=== PATIENT | female | born 1965 | race Caucasian/White ===

== ENCOUNTER 2021-08-06 08:09 | Inpatient (IN) ==
--- NOTE | 2021-07-03 15:01 | PAT Medication Instructions ---
Medication Instructions Date of Service July 03, 2021 Home Medications B6 1.7 mg-folic 400 mcg-B12 2.4 dpk-jvssgd-cacvdoflkrjj oral capsule (Neuriva Plus Brain Performance) 1 cap PO QAM Lactobacillus 40-Bifidobact 3-S.thermophilus 100 billion cell capsule (P robiotic) 1 cap PO DAILY bupropion HCl 150 mg tablet,12 hr sustained-release 150 mg PO QAM calcium carbonate 600 mg-vitamin D3 5 mcg (200 unit) capsule (Calcium 600 + D(3)) 1 cap PO QAM clonazepam 1 mg tablet 1 mg PO TID PRN duloxetine 60 mg capsule,delayed release 60 mg PO QAM gabapentin 600 mg tablet 600 mg PO HS methocarbamol 750 mg tablet 750 - 1,500 mg PO TID PRN naproxen 500 mg tablet 500 mg PO BID PRN topiramate 50 mg tablet 50 mg PO UD ASK your surgeon for instructions naproxen 500 mg tablet 500 mg PO BID PRN STOP taking 2 weeks before surgery B6 1.7 mg-folic 400 mcg-B12 2.4 vuw-pemnnm-hizsxyopwzka oral capsule (Neuriva Plus Brain Performance) 1 cap PO QAM DO NOT take the morning of surgery Lactobacillus 40-Bifidobact 3-S.thermophilus 100 billion cell capsule (Probiotic) 1 cap PO DAILY calcium carbonate 600 mg-vitamin D3 5 mcg (200 unit) capsule (Calcium 600 + D(3)) 1 cap PO QAM methocarbamol 750 mg tablet 750 - 1,500 mg PO TID PRN Take morning of surgery With a small sip of water, OTHERWISE NOTHING TO EAT OR DRINK AFTER MIDNIGHT: bupropion HCl 150 mg tablet,12 hr sustained-release 150 mg PO QAM clonazepam 1 mg tablet 1 mg PO TID PRN (if needed) duloxetine 60 mg capsule,delayed release 60 mg PO QAM topiramate 50 mg tablet 50 mg PO UD Take evening before surgery gabapentin 600 mg tablet 600 mg PO HS clonazepam 1 mg tablet 1 mg PO TID PRN (if needed) methocarbamol 750 mg tablet 750 - 1,500 mg PO TID PRN (if needed) topiramate 50 mg tablet 50 mg PO UD Other Notes If you have any questions please call us at [phone] or [phone] or [phone] or [phone]
--- NOTE | 2021-07-07 11:17 | Anesthesiology Consultation ---
Date of Service July 07, 2021 Assessment & Plan (1) Encounter for pre-operative examination: - will attempt to obtain most recent cardiology office note and echocardiogram, will then reviewed with anesthesiologist if patient needs cardiology pre-op evaluation. - surgeon ordered medical clearance. - COVID screening: Per assessment on 07/07/2021: Travel screen negative, no known COVID-19 positive contacts or current COVID-19 related symptoms in past 2 weeks. Patient vaccinated. Surgeon arranging preop COVID testing, scheduled 07/17/2021. Awaiting results. Chart Review Chart Review: Pending: Refer to Additional Notes / Consult section and Patient seen in Pre Admission Testing Teaching & Discussion Pre-Anesthesia Teaching/Discussion Notes: Instructed NPO after midnight before surgery, except medications with 15 cc of water. Medication instructions provided according to the PAT guidelines. History Surgery Operation Date: 07/21/21 10:05 Proposed Procedures p L2-L3 Decompression, L2-L5 Fusion, L3-L5 Hardware Removal Spinal Cord Monitoring - Sesar Bartlett, Height/Weight Height: 5 ft 2 in Weight: 98.2 kg Allergies Allergy/AdvReac Type Severity Reaction Status Date / Time Penicillins Allergy Mild Rash Verified 07/03/21 12:31 acetaminophen [From [place]] AdvReac Mild SICK TO Verified 07/03/21 12:31 STOMACH hydrocodone [From [place]] AdvReac Mild SICK TO Verified 07/03/21 12:31 STOMACH morphine AdvReac Mild ITCHING Verified 07/03/21 12:31 ALL OVER Medications Home Medications Medication Instructions Recorded Confirmed Last Taken B6 1.7 mg-folic 400 mcg-B12 2.4 1 cap PO QAM 07/03/21 07/03/21 Unknown xzy-gpttby-facasopwzyhu oral capsule (Neuriva Plus Brain Performance) Lactobacillus 40-Bifidobact 1 cap PO DAILY 07/03/21 07/03/21 Unknown 3-S.thermophilus 100 billion cell capsule (Probiotic) bupropion HCl 150 mg tablet,12 hr 150 mg PO QAM 07/03/21 07/03/21 Unknown sustained-release calcium carbonate 600 mg-vitamin 1 cap PO QAM 07/03/21 07/03/21 Unknown D3 5 mcg (200 unit) capsule (Calcium 600 + D(3)) clonazepam 1 mg tablet 1 mg PO TID PRN 07/03/21 07/03/21 Unknown duloxetine 60 mg capsule,delayed 60 mg PO QAM 07/03/21 07/03/21 Unknown release gabapentin 600 mg tablet 600 mg PO HS 07/03/21 07/03/21 Unknown methocarbamol 750 mg tablet 750 - 1,500 mg PO TID PRN 07/03/21 07/03/21 Unknown naproxen 500 mg tablet 500 mg PO BID PRN 07/03/21 07/03/21 Unknown topiramate 50 mg tablet 50 mg PO UD 07/03/21 07/03/21 Unknown Past Medical History Medical History (Updated 07/07/21 @ 11:39 by Rona Barber PA-C) ADD (attention deficit disorder) Anxiety and depression Arthritis Cardiomyopathy used to follow-up with Dr. Suazo 3-4 yrs ago Degenerative disc disease Epileptic seizures LAST ONE 8 MONTHS AGO>FOLLOWED BY DR. SIERRA Hx of migraines Neuropathy Sleep apnea CPAP-compliant Patient denies h/o stroke, heart attack, DM, HTN, blood clots or blood transfusions. Exercise / Class Metabolic Activity II 4-5 Yardwork/Stairs/Walk up hill (denies CP or SOB with 1 FOS) Past Family History Family History Other No family history of adverse response to anesthesia Past Surgical History Surgical History History of arthroscopy RT KNEE X 4 History of cataract surgery RT/LEFT History of colonoscopy History of lumbar surgery FUSION IN PAST *4 TOTAL BACK SURGERIES History of partial hysterectomy History of repair of rotator cuff LEFT History of tooth extraction Hx of decompression of ulnar nerve LEFT Past Anesthesia History No Family Hx of Anesthesia Complications and Other (post-op hypotension; denies needing transfusion) History of PONV No Hx of PONV and No Hx of Motion Sickness Social History Smoking Status: Current every day smoker tobacco type: cigarettes and e-cigarettes Smoking cigarettes per day: CURRENTLY VAPING>QUIT CIG. 3 YEARS AGO-advised Do You Dip or Chew Tobacco: No Hx Alcohol Use: No substance use type: does not use Review of Systems Patient denies chest pain, shortness of breath, dyspnea on exertion, reflux, fever, chills, cough, wheezing, or palpitations. Physical Exam Vital Signs Vitals BP 122/83 P 73 TEMP 99.2 SP02 98% on RA RESP 17 Physical Full cervical extension range of motion without pain TMD 3.5 finger breaths Mallampati Score 3 Dentition: intact, two caps upper front teeth; denies chipped or loose teeth, implants or bridges Lungs: normal respiratory effort. Clear throughout to auscultation, no adven titious breath sounds Cardiac: regular rate and rhythm, no murmurs noted Carotid arteries: negative bruit bilat Lab Results Anesthesia Preop Results Results Anesthesia Widget: WBC 3.96 K/uL (4.8-10.8) L 07/07/21 Hgb 15.3 g/dL (12.0-16.0) 07/07/21 Hct 45.3 % (37-47) 07/07/21 Plt 134 K/uL (130-400) 07/07/21 Na 141 mmol/L (136-145) 07/07/21 K 4.3 mmol/L (3.5-5.1) 07/07/21 Cl 109 mmol/L (98-107) H 07/07/21 CO2 27 mmol/L (21-32) 07/07/21 BUN 15 mg/dl (6-23) 07/07/21 Creat 1.18 mg/dl (0.6-1.2) 07/07/21 Glucose Level 99 mg/dl (70-99(Fasting)) 07/07/21 PT 10.9 Seconds (9.0-12.0) 07/07/21 PTT 31.8 Seconds (21.0-31.0) H 07/07/21 INR 1.0 (0.9-1.1) 07/07/21 Urine Color Yellow 07/07/21 Urine Appearance Clear (Clear) 07/07/21 Urine pH 6.0 (4.5-7.5) 07/07/21 Urine Specific [place] 1.014 (1.000-1.030) 07/07/21 Urine Protein Negative (Negative) 07/07/21 Urine Glucose (UA) Negative (Negative) 07/07/21 Urine Ketones Negative (Negative) 07/07/21 Urine Blood Negative (Negative) 07/07/21 Urine Nitrite Negative (Negative) 07/07/21 Urine Bilirubin Negative (Negative) 07/07/21 Urine Urobilinogen Negative (Negative) 07/07/21 Urine Leukocyte Esterase 2+ (Negative) H 07/07/21 Urine WBC (Auto) 10-30 /hpf (0-5) H 07/07/21 Urine RBC (Auto) 5-10 /hpf (0-4) H 07/07/21 Urine Hyaline Casts (Auto) 1-5 /lpf (0-5) 07/07/21 Urine Epithelial Cells (Auto) >30 /lpf (0-5) H 07/07/21 Urine Bacteria (Auto) 2+ (Negative) H 07/07/21 Blood Type O Negative 07/07/21 Antibody Screen NEGATIVE 07/07/21 Testing Laboratory Results Tere at surgeon's office made aware of abnormal UA and patient reported h/o post-op hypotension. Electrocardiogram Date: 07/07/21 NSR, rate 69 bpm Chest X-Ray Date: 07/07/21 The cardiomediastinal and hilar silhouettes are within normal limits. No pneumothorax, pleural effusion, airspace consolidation or overt pulmonary edema. Spondylitic spurring of the spine. IMPRESSION: No acute process.
[~2021-08-06 08:09] MED LIST: ACETAMINOPHEN 500 MG TAB PO SCH; CLINDAMYCIN/D5W 600 MG/54 ML BAG IV SCH; CeleBREX 200 MG CAP PO SCH; GABAPENTIN 600 MG DOSE PO SCH; LR 15ML/HR IV SCH
[2021-08-06] MEDS ORDERED: MIDAZOLAM HCL 1 MG/ML 2ML VIAL ONE (09:47)
[2021-08-06] MEDS ORDERED: fentaNYL citrate 100 MCG/2 ML VIAL ONE ×2 (09:47→12:17)
[2021-08-06] MEDS ORDERED: LIDOCAINE 2% 2 ML VIAL/AMP(20MG/ML) INFIL ONE (09:47)
[2021-08-06] MEDS ORDERED: ONDANSETRON INJ 2 MG/ML 2 ML VIAL ONE (09:47)
[2021-08-06] MEDS ORDERED: PROPOFOL IV EMULSION 10 MG/ML 20 ML VIAL IV ONE (09:47)
[2021-08-06] MEDS ORDERED: DEXAMETHASONE SOD INJ 4 MG/ML VIAL ONE (09:47)
[2021-08-06] MEDS ORDERED: ROCURONIUM BROMIDE 10 MG/ML 5 ML VIAL IV ONE (09:47)
--- NOTE | 2021-08-06 10:00 | History & Physical Bridge Note ---
Date of Service August 06, 2021 History & Physical Bridge Note I have examined the patient, reviewed the History & Physical and in the interval since the performance of the History & Physical I have noted the following changes of clinical significance: no changes noted
--- NOTE | 2021-08-06 10:01 | History & Physical Report ---
Date of Service August 06, 2021 Assessment & Plan (1) Neurogenic claudication due to lumbar spinal stenosis: Plan: L2-L3 decompression, L2-L5 fusion, L3-L5 hardware removal, possible L1-L2 History of Present Illness Chief Complaint: Back and bilateral leg pain Primary Care Provider: Kesha Rodríguez MD This is a 56-year-old female who presents with chronic persistent back and bilateral leg pain after failing course of nonoperative care is here for surgical invention. Allergies Allergy/AdvReac Type Severity Reaction Status Date / Time Penicillins Allergy Mild Rash Verified 08/06/21 08:37 acetaminophen [From [place]] AdvReac Mild SICK TO Verified 08/06/21 08:37 STOMACH hydrocodone [From [place]] AdvReac Mild SICK TO Verified 08/06/21 08:37 STOMACH morphine AdvReac Mild ITCHING Verified 08/06/21 08:37 ALL OVER Home Medications Medication Instructions Recorded Confirmed Type B6 1.7 mg-folic 400 mcg-B12 2.4 1 cap PO QAM 07/03/21 08/06/21 History qal-bbfhhj-qlugkbgthrkk oral capsule (Neuriva Plus Brain Performance) Lactobacillus 40-Bifidobact 1 cap PO DAILY 07/03/21 08/06/21 History 3-S.thermophilus 100 billion cell capsule (Probiotic) bupropion HCl 150 mg tablet,12 hr 150 mg PO QAM 07/03/21 08/06/21 History sustained-release calcium carbonate 600 mg-vitamin 1 cap PO QAM 07/03/21 08/06/21 History D3 5 mcg (200 unit) capsule (Calcium 600 + D(3)) clonazepam 1 mg tablet 1 mg PO TID PRN 07/03/21 08/06/21 History duloxetine 60 mg capsule,delayed 60 mg PO QAM 07/03/21 08/06/21 History release gabapentin 600 mg tablet 600 mg PO HS 07/03/21 08/06/21 History methocarbamol 750 mg tablet 750 - 1,500 mg PO TID PRN 07/03/21 08/06/21 History naproxen 500 mg tablet 500 mg PO BID PRN 07/03/21 08/06/21 History topiramate 50 mg tablet 50 mg PO UD 07/03/21 08/06/21 History Past Med/Surg History Medical History (Updated 08/06/21 @ 10:01 by Sesar M Tri, DO) ADD (attention deficit disorder) Anxiety and depression Arthritis Cardiomyopathy used to follow-up with Dr. Suazo 3-4 yrs ago Degenerative disc disease Epileptic seizures LAST ONE 8 MONTHS AGO>FOLLOWED BY DR. SIERRA Hx of migraines Neuropathy Sleep apnea CPAP-compliant Surgical History History of arthroscopy RT KNEE X 4 History of cataract surgery RT/LEFT History of colonoscopy History of lumbar surgery FUSION IN PAST *4 TOTAL BACK SURGERIES History of partial hysterectomy History of repair of rotator cuff LEFT History of tooth extraction Hx of decompression of ulnar nerve LEFT Family History Other No family history of adverse response to anesthesia Social History Smoking Status: Current every day smoker Cigarettes Per Day: CURRENTLY VAPING>QUIT CIG. 3 YEARS AGO-advised; Second Hand Exposure: No; Do You Dip or Chew Tobacco: No; Hx Alcohol Use: No Preferred Language: Congolese Granulating Blender Required: No Beliefs That Will Affect Care: None Current Living Situation: Spouse Feels Safe at Home: Yes Safety Concerns: Feels Safe At This Time Assistive Devices: CPAP and Glasses Assistive Devices Comment: READING GLASSES Physical Exam Physical Exam: Patient is alert and oriented Heart regular rhythm Lungs clear Results & Data Results & Data ([facility] [place]) Vital Signs (Past 12 Hours) Vital Signs Temp Pulse Resp BP Pulse Ox 08/06/21 09:14 36.6 C 78 20 144/83 H 98
[2021-08-06] MEDS ORDERED: ceFAZolin 330 MG/ML 1 GM VIAL ONE (10:08)
[2021-08-06] MEDS ORDERED: BUPIVACAINE/EPINEPHRINE 0.25% 1:200,000 30 ML VIAL ONE (10:08)
[2021-08-06] MEDS ORDERED: ONDANSETRON INJ 2 MG/ML 2 ML VIAL IV PRN ×2 (10:15→15:53)
[2021-08-06] MEDS ORDERED: HYDROmorphone INJ 2 MG/ML SYR/VIAL IV PRN (10:15)
[2021-08-06] MEDS ORDERED: PROMETHAZINE HCL 6.25 MG in SODIUM CHLORIDE 0.9% 50 ML IV PRN (10:15)
[2021-08-06] MEDS ORDERED: ePHEDrine sulfate 50 MG/ML AMP IV PRN (10:15)
[2021-08-06] MEDS ORDERED: ATROPINE SULFATE 0.1 MG/ML 10ML SYR IV PRN (10:15)
--- NOTE | 2021-08-06 11:26 | Anesthesiology Consultation ---
Date of Service August 06, 2021 Assessment & Plan Chart Review Chart Review: Acceptable Risk for Surgery and Patient NOT seen in Pre Admission Testing Consults Requested none ASA ASA3 Proposed Anesthesia Anesthesia Type: General Risk / Benefits Reviewed With: PT / POA / Parent / Guardian, Accepts Plan and Informed Consent Obtained History Surgery Operation Date: 08/06/21 10:05 Proposed Procedures p L2-L3 Decompression, L2-L5 Fusion, L3-L5 Hardware Removal, Spinal Cord Monitoring - Sesar Bartlett, Height/Weight Height: 5 ft 2 in Weight: 99.9 kg Allergies Allergy/AdvReac Type Severity Reaction Status Date / Time Penicillins Allergy Mild Rash Verified 08/06/21 08:37 acetaminophen [From [place]] AdvReac Mild SICK TO Verified 08/06/21 08:37 STOMACH hydrocodone [From [place]] AdvReac Mild SICK TO Verified 08/06/21 08:37 STOMACH morphine AdvReac Mild ITCHING Verified 08/06/21 08:37 ALL OVER Medications Home Medications Medication Instructions Recorded Confirmed Last Taken B6 1.7 mg-folic 400 mcg-B12 2.4 1 cap PO QAM 07/03/21 08/06/21 08/05/21 09:00 ucb-ofvgnz-oanygiozwpcu oral capsule (Neuriva Plus Moodswing) Lactobacillus 40-Bifidobact 1 cap PO DAILY 07/03/21 08/06/21 08/05/21 09:00 3-S.thermophilus 100 billion cell capsule (Probiotic) bupropion HCl 150 mg tablet,12 hr 150 mg PO QAM 07/03/21 08/06/21 08/06/21 06:00 sustained-release calcium carbonate 600 mg-vitamin 1 cap PO QAM 07/03/21 08/06/21 08/05/21 08:00 D3 5 mcg (200 unit) capsule (Calcium 600 + D(3)) clonazepam 1 mg tablet 1 mg PO TID PRN 07/03/21 08/06/21 08/06/21 06:00 duloxetine 60 mg capsule,delayed 60 mg PO QAM 07/03/21 08/06/21 08/06/21 06:00 release gabapentin 600 mg tablet 600 mg PO HS 07/03/21 08/06/21 08/05/21 23:00 methocarbamol 750 mg tablet 750 - 1,500 mg PO TID PRN 07/03/21 08/06/21 08/05/21 23:00 naproxen 500 mg tablet 500 mg PO BID PRN 07/03/21 08/06/21 07/29/21 08:00 topiramate 50 mg tablet 50 mg PO UD 07/03/21 08/06/21 08/06/21 06:00 Active Medications Generic Name Dose Route Start Last Admin Trade Name Idris PRN Reason Stop Dose Admin Acetaminophen 1,000 mg 08/06/21 06:00 08/06/21 08:47 Acetaminophen 500 Mg Tab PO 08/06/21 18:00 1,000 mg PREOP AUBREE Administration Celecoxib 200 mg 08/06/21 06:00 08/06/21 08:48 Celebrex 200 Mg Cap PO 08/06/21 18:00 200 mg PREOP AUBREE Administration Gabapentin 600 mg 08/06/21 06:00 08/06/21 08:47 Gabapentin 600 Mg Dose PO 08/06/21 18:00 600 mg PREOP AUBREE Administration Clindamycin Phosphate 600 mg in 54 mls @ 100 mls/hr 08/06/21 06:00 08/06/21 10:21 Cleocin/D5w IV 08/07/21 05:59 100 mls/hr PREOP AUBREE Administration Lactated Ringer's 1,000 mls @ 15 mls/hr 08/06/21 06:00 08/06/21 10:21 Lr IV 08/07/21 05:59 Infused .Q24H AUBREE Infusion NPO Date Last Intake of Fluids: 08/06/21 Time Last Intake of Fluids: 06:15 Last Intake of Fluids Comment: sip with meds Date Last Intake of Solids: 08/05/21 Time Last Intake of Solids: 23:30 Past Medical History Medical History (Updated 08/06/21 @ 10:01 by Sesar Bartlett DO) ADD (attention deficit disorder) Anxiety and depression Arthritis Cardiomyopathy used to follow-up with Dr. Suazo 3-4 yrs ago Degenerative disc disease Epileptic seizures LAST ONE 8 MONTHS AGO>FOLLOWED BY DR. SIERRA Hx of migraines Neuropathy Sleep apnea CPAP-compliant Exercise / Class Metabolic Activity II 4-5 Yardwork/Stairs/Walk up hill Past Family History Family History Other No family history of adverse response to anesthesia Past Surgical History Surgical History History of arthroscopy RT KNEE X 4 History of cataract surgery RT/LEFT History of colonoscopy History of lumbar surgery FUSION IN PAST *4 TOTAL BACK SURGERIES History of partial hysterectomy History of repair of rotator cuff LEFT History of tooth extraction Hx of decompression of ulnar nerve LEFT Past Anesthesia History No Hx of Anesthesia Complications and No Family Hx of Anesthesia Complications History of PONV No Hx of PONV and No Hx of Motion Sickness Social History Smoking Status: Current every day smoker tobacco type: cigarettes and e-cigarettes Smoking cigarettes per day: CURRENTLY VAPING>QUIT CIG. 3 YEARS AGO-advised Do You Dip or Chew Tobacco: No Hx Alcohol Use: No substance use type: does not use Physical Exam Vital Signs Last Vital Signs Temp 36.6 C 08/06/21 09:14 Pulse 78 08/06/21 09:14 Resp 20 08/06/21 09:14 BP 144/83 H 08/06/21 09:14 Pulse Ox 98 08/06/21 09:14 Constitutional + morbidly obese ENMT Mouth: no dentition abnormality Thyromental Distance: > or= 3.5 Finger Breadths Mallampati Class: II Neck normal visual inspection Respiratory normal respiratory effort Auscultation: lungs clear to auscultation bilaterally Cardiovascular Rate/Rhythm: regular rate and regular rhythm Psychiatric Orientation: alert
[2021-08-06] MEDS ORDERED: FLOSEAL HEMOSTATIC MATRIX 10ML TOP ONE (12:01)
[2021-08-06] MEDS ORDERED: SURGICEL ABSORB HEMOSTAT 2IN X 14IN TOP ONE (12:47)
[2021-08-06] MEDS ORDERED: SUGAMMADEX SODIUM 200 MG/2 ML VIAL IV ONE (12:55)
--- NOTE | 2021-08-06 12:56 | Anesthesiology Progress Note ---
Date of Service August 06, 2021 Anesthesia Post Procedure Vital Signs Vital Signs: Temp Pulse Resp BP Pulse Ox 08/06/21 09:14 36.6 C 78 20 144/83 H 98 Transfer of Care Handoff Completed per policy Notes Mental Status: alert / awake / arousable Patient Amnestic to Procedure: Yes Nausea / Vomiting: adequately controlled Pain: adequately controlled Airway Patency, RR, SpO2: stable & adequate BP & HR: stable & adequate Hydration State: stable & adequate Anesthetic Complications: no major complications apparent
--- NOTE | 2021-08-06 13:01 | Operative Report ---
Post Operative Report Pre & Post Diagnosis Operation Date: 08/06/21 10:05 Pre-Op Diagnosis: Neurogenic Claudication due to Lumbar Spinal Stenosis Far lateral disc herniation L1-L2 on the right Morbid obesity Post-Op Diagnosis: Same I identified the patient and participated in the time-out.: Yes Procedure Operation Date: 08/06/21 10:05 Actual Procedures #1 removal of posterior instrumentation L3-L5. #2 exploration of fusion L3-L5. #3 lumbar decompression with bilateral medial facetectomies and foraminotomies L1-L2 L2-L3. #4 posterior spinal fusion L1-L3. #5 placement posterior instrumentation L1-L5. #6 Surgeon Sesar Bartlett, DO Basic Acoustic Analyst Marielena Person Estimated Blood Loss 1,200 Findings See Below Patient is 5 foot 2 inches tall weighing over 99 kg with a BMI in excess of 40. This combined with an EBL of greater than 1000 cc created significant technical difficulty getting at least 50% increased operative time. Specimens None Indications This is a 56-year-old female presents with above-mentioned diagnosis after failed course of nonoperative care is here for surgical invention. Description of Procedure Patient was met with identified informed consent obtained. Patient was then taken to the operative suite underwent a patient placed in a prone position the Faustino table atop the Sergio frame. All bony prominences well-padded eyes inspected to ensure no external pressure placed monitor at this point lumbar spine was prepped and draped in a sterile fashion. Sharp dissection with the assistance were guarded from down to and exposing the lamina transverse processes of L1-L2 and instrumentation at L3-L4 bilaterally. I then proceeded with the hardware bilaterally. I explored the fusion mass noting it to be intact. Then performed a complete laminectomy of L2 and L1 including medial facetectomies and foraminotomies addressing severe spinal stenosis and noting a mass Far lateral disc herniation L1-L2 on the right. Was highly vascularized and obviously been there for a long time. It was removed and sent entirety. I then placed pedicle screws at L1-L2-L3 and L5 bilaterally with assistance of fluoroscopy in the process shannan locked into position. In light of her significant epidural hypervascular state I chose not to pursue interbody constructs due to blood loss at this point procedure. Transverse processes of L1-L2-L3 and L4 were then burred to subcortically bone. Infuse collagen sponge master graft local autograft was placed in the posterior gutters. I factor was placed at the L4-L5 levels. 15 round ANUJ drains inserted. The incision was then closed with 1 Vicryl the fascia 2-0 Vicryl subcutaneously and 4 Monocryl for fascial closure. Steri-Strips dressings placed. Patient waken taken back in stable condition. Please note spinal cord monitoring was utilized at the procedure no changes noted. Lastly Marielena Person was present out the entire surgery involved the patient positioning complex portions of the surgery and final skin closure. I attest to the content of the Intraoperative Record and any orders documented therein. Any exceptions are noted below.
[2021-08-06] MEDS ORDERED: NEOSTIGMINE METHYLSULFATE 1 MG/ML 10ML VIAL ONE (13:03)
[2021-08-06] MEDS ORDERED: GLYCOPYRROLATE 0.2 MG/ML VIAL ONE (13:03)
--- NOTE | 2021-08-06 13:29 | Fluoroscopy Report ---
FL lumbar spine 2-3V CLINICAL HISTORY: L2-L3 DECOMPRESSION L2-L5 FUSION L3-L5 HW REMOVAL COMPARISON STUDY: None. FLUOROSCOPY TIME: 16 seconds. FINDINGS: 2 fluoroscopic spot images of the lumbar spine demonstrate posterior decompression fusion f rom L2 through S1 with pedicle screws and rods. Hardware appears intact. IMPRESSION: Fluoroscopic assistance provided for posterior decompression and fusion from L2 through S 1. ACT 112: Negative or not required by law. Electronically signed by: Bruce Riley M.D. 08/06/2021 1:28 PM
--- NOTE | 2021-08-06 14:29 | Anesthesiology Progress Note ---
Date of Service August 06, 2021 Anesthesia Post Procedure Vital Signs Vital Signs: Temp Pulse Pulse Resp BP BP Pulse Ox 08/06/21 14:20 94 H 17 92/57 L 96 08/06/21 14:10 89 20 100/64 97 08/06/21 14:00 85 15 90/67 L 96 08/06/21 13:50 90 14 99/67 L 97 08/06/21 13:40 91 H 12 120/71 94 08/06/21 13:30 102 H 16 75/57 L 94 08/06/21 13:21 37.3 C 92 H 16 95/78 L 100 08/06/21 09:14 36.6 C 78 20 144/83 H 98 Pain Intensity Back: Pain Intensity: 8 Transfer of Care Handoff Completed per policy Notes Mental Status: alert / awake / arousable Patient Amnestic to Procedure: Yes Nausea / Vomiting: adequately controlled Pain: adequately controlled Airway Patency, RR, SpO2: stable & adequate BP & HR: stable & adequate Hydration State: stable & adequate Anesthetic Complications: no major complications apparent
[2021-08-06] MEDS: fentaNYL citrate 100 MCG/2 ML VIAL IV PRN ×4 (14:36→15:55)
[2021-08-06] MEDS ORDERED: bisacodyL 10 MG SUPP PR PRN (15:53)
[2021-08-06] MEDS ORDERED: MAGNESIUM HYDROXIDE SUSP 30 ML UDC PO PRN (15:53)
[2021-08-06] MEDS ORDERED: HYDROmorphone INJ 1 MG/ML SYRINGE IV PRN (15:53)
[2021-08-06] MEDS ORDERED: HYDROmorphone INJ 0.5 MG/0.5 ML SYR IV PRN (15:53)
[2021-08-06] MEDS ORDERED: FAMOTIDINE 20 MG TAB PO PRN (15:53)
[2021-08-06] MEDS ORDERED: PROMETHAZINE HCL 12.5 MG in SODIUM CHLORIDE 0.9% 50 ML IV PRN (15:53)
[2021-08-06] MEDS ORDERED: diphenhydrAMINE Capsule 25 MG CAP PO PRN (15:53)
[2021-08-06] MEDS ORDERED: LORazepam 0.5 MG TAB PO PRN (15:53)
[2021-08-06] MEDS ORDERED: NALOXONE HCL 0.4 MG/1 ML VIAL/CARP IV PRN (15:53)
[2021-08-06] MEDS ORDERED: METOCLOPRAMIDE HCL INJ 5 MG/ML 2 ML VIAL IV PRN (15:53)
[2021-08-06] MEDS ORDERED: ACETAMINOPHEN 1,000 MG/100 ML VIAL IV PRN (15:53)
[2021-08-06] MEDS ORDERED: SOD PHOSPHATE/SOD BIPHOSPHATE ENEMA 132 ML BTL PR PRN (15:53)
[2021-08-06] MEDS ORDERED: ALUMINUM/MAGNESIUM SUSP 30 ML UDC PO PRN (15:53)
[2021-08-06] MEDS ORDERED: traMADol HCL 50 MG TABLET PO PRN (15:53)
[2021-08-06] MEDS ORDERED: LORazepam 2 MG/1 ML VIAL IV PRN (15:53)
[2021-08-06] MEDS ORDERED: ONDANSETRON 4 MG OD TAB PO PRN (15:53)
[2021-08-06] MEDS ORDERED: ACETAMINOPHEN 500 MG TAB PO PRN (15:53)
[2021-08-06] MEDS ORDERED: hydrOXYzine HCl 25 MG TAB PO PRN (15:53)
[2021-08-06] MEDS: LACTATED RINGER'S 1,000 ML IV SCH (16:47)
[2021-08-06] MEDS ORDERED: DO NOT ADMINISTER FLU VACCINE PRN (19:01)
[2021-08-06] MEDS ORDERED: DO NOT ADMINISTER PNEUMOCOCCAL VACCINE PRN (19:01)
[2021-08-06] MEDS: CLINDAMYCIN 600 MG in DEXTROSE 5% 50 ML IV SCH (20:04)
[2021-08-06] MEDS: oxyCODONE HCL IR 5 MG TAB (IMMEDIATE RELEASE) PO PRN (20:13)
[2021-08-06] MEDS: GABAPENTIN 600 MG TAB PO SCH (21:01)
[2021-08-06] MEDS: clonazePAM 1 MG TAB PO PRN (21:01)
[2021-08-06] MEDS: TOPIRAMATE 50 MG TAB PO SCH (21:01)
[2021-08-06] MEDS: DOCUSATE SODIUM/SENNA 50/8.6MG TAB PO SCH (21:02)
--- NOTE | 2021-08-07 00:07 | Consultation ---
Date of Consultation August 06, 2021 Assessment & Plan (1) Neurogenic claudication due to lumbar spinal stenosis: 56yo female presenting with neurogenic claudication due to lumbar spinal stenosis s/p #1 removal of posterior instrumentation L3-L5. #2 exploration of fusion L3-L5. #3 lumbar decompression with bilateral medial facetectomies and foraminotomies L1-L2 L2-L3. #4 posterior spinal fusion L1-L3. #5 placement posterior instrumentation L1-L5. #[address] Bartlett today under general anesthesia. Surgery somewhat prolonged with EBL of 1200mL. -Pain control, bowel regimen and anti-emetics per primary team -Clindamycin per primary team -Dexamethasone per primary team -PT/OT and discharge planning per primary team (2) Cardiomyopathy: Patient with history of HOCM with asymmetric septal hypertrophy diagnosed by echo. She does not have symptoms. She was following with Cardiology in the past - [address] Suazo. No LVOT obstruction noted on echo. She was recommended a beta brian but is not currently taking this. She was cleared by Cardiology for surgical intervention. Presently with no evidence of failure. HD stable. -Recommend routine outpatient followup, close monitoring for symptoms, serial echos -Avoid hypotension and volume contraction as this can cause LVOT obstruction -Patient is presently receiving LR at 150mL/hr to continue -CBC ordered for AM - may need transfusion pending H/H values (3) Anxiety and depression: Well controlled -Continue Bupropion 150mg po qAM -Continue Clonazepam -Continue Duloxetine (4) Epileptic seizures: Well controlled. Patient states that this is secondary to a meningioma. She has a 1cm parafalcial meningioma noted on prior imaging. -Continue Topiramate 100mg po qHS, 50mg po daily -Continue Gabapentin History of Present Illness Reason for Consultation: post operative management Attending Physician: Sesar Bartlett, DO History of Present Illness Khadra Rowland is a pleasant 56yo female with history of Anxiety, Cardiomyopathy and seizure disorder presenting to [facility] with neurogenic claudication due to lumbar spinal stenosis - disc herniation at L1- L2. Patient had removal of posterior instrumentation L3-L5, lumbar decompression with bilateral medial facetectomies and foraminotomies L1-L2, L2-L3 as well as posterior spinal fusion L1-L3 and placement of posterior instrumentation L1-L5. Surgery performed by Dr. Bartlett 08/06/21. Operation was technically difficult and required at least 50% increased operative time. Patient had EBL of 1200mL. She was briefly hypotensive in the ER to 75/57 which has since improved. Patient with complaint of pain at this time -08/15. She was just administered pain medication. She denies nausea. She has been able to tolerate liquids but has not yet eaten any food. Berman catheter in place. No BM as of yet. No additional complaints at this time. Allergies Allergy/AdvReac Type Severity Reaction Status Date / Time Penicillins Allergy Mild Rash Verified 08/06/21 08:37 acetaminophen [From [facility]] AdvReac Mild SICK TO Verified 08/06/21 08:37 STOMACH hydrocodone [From [facility]] AdvReac Mild SICK TO Verified 08/06/21 08:37 STOMACH morphine AdvReac Mild ITCHING Verified 08/06/21 08:37 ALL OVER Home Medications Medication Instructions Recorded Confirmed Type B6 1.7 mg-folic 400 mcg-B12 2.4 1 cap PO QAM 07/03/21 08/06/21 History lrv-gbgcbs-pvpycyjhprrn oral capsule (Neuriva Plus Brain [employer]) Lactobacillus 40-Bifidobact 1 cap PO DAILY 07/03/21 08/06/21 History 3-S.thermophilus 100 billion cell capsule (Probiotic) bupropion HCl 150 mg tablet,12 hr 150 mg PO QAM 07/03/21 08/06/21 History sustained-release calcium carbonate 600 mg-vitamin 1 cap PO QAM 07/03/21 08/06/21 History D3 5 mcg (200 unit) capsule (Calcium 600 + D(3)) clonazepam 1 mg tablet 1 mg PO TID PRN 07/03/21 08/06/21 History duloxetine 60 mg capsule,delayed 60 mg PO QAM 07/03/21 08/06/21 History release gabapentin 600 mg tablet 600 mg PO HS 07/03/21 08/06/21 History methocarbamol 750 mg tablet 750 - 1,500 mg PO TID PRN 07/03/21 08/06/21 History naproxen 500 mg tablet 500 mg PO BID PRN 07/03/21 08/06/21 History topiramate 50 mg tablet 50 mg PO UD 07/03/21 08/06/21 History Patient History Medical History (Updated 08/07/21 @ 00:14 by M Marcos, DO) ADD (attention deficit disorder) Anxiety and depression Arthritis Cardiomyopathy used to follow-up with Dr. Suazo 3-4 yrs ago Degenerative disc disease Epileptic seizures LAST ONE 8 MONTHS AGO>FOLLOWED BY DR. SIERRA Hx of migraines Neuropathy Sleep apnea CPAP-compliant Surgical History History of arthroscopy RT KNEE X 4 History of cataract surgery RT/LEFT History of colonoscopy History of lumbar surgery FUSION IN PAST *4 TOTAL BACK SURGERIES History of partial hysterectomy History of repair of rotator cuff LEFT History of tooth extraction Hx of decompression of ulnar nerve LEFT Family History Other No family history of adverse response to anesthesia Social History Smoking Status: Current every day smoker Cigarettes Per Day: CURRENTLY VAPING>QUIT CIG. 3 YEARS AGO-advised; Second Hand Exposure: No; Do You Dip or Chew Tobacco: No; Hx Alcohol Use: No Preferred Language: Togolese Recreation Therapist Required: No Beliefs That Will Affect Care: None Current Living Situation: Spouse Feels Safe at Home: Yes Safety Concerns: Feels Safe At This Time Assistive Devices: CPAP and Glasses Assistive Devices Comment: READING GLASSES Review of Systems Review of Systems: General: Patient denies fevers, chills, malaise, weight l oss or weight gain Skin: Patient denies bruising, bleeding or rash HEENT: Patient denies headache, visual changes, sore throat, difficulty swallowing, stiff neck Cardio: Patient denies chest pain, palpitations, shortness of breath, lightheadedness Pulmonary: Patient denies cough, wheeze GI: Patient denies abdominal pain, nausea, vomiting, diarrhea, constipation : Patient denies dysuria, frequency, urgency or hematuria Musculoskeletal: Patient denies swelling or pain of the joints, edema Neuro: Patient denies numbness, tingling, weakness or falls Psych: Patient denies depression, anxiety Physical Exam Physical Exam: General: patient resting comfortably, NAD, non-toxic in appearance, AA&O x 4 Skin: warm, dry, intact, no rashes or lesions HEENT: NC/AT, PERRL, EOMI, anicteric sclera, conjunctiva without injection, external ear normal to inspection and nontender, nares patent, moist mucus membr anes, dentition intact, no oropharyngeal lesions, neck supple, trachea midline, no LAD, no thyromegaly, no JVD Heart: +S1/S2, regular, no m/r/g Lungs: equal air entry bilaterally, no rales/rhonchi/wheezes Abd: +BS, soft, NT/ND, no masses/organomegaly/ascites, Berman catheter in place with clear yellow urine in bag Ext: warm, 2+ pulses in UE/LE bilaterally, no clubbing/cyanosis or edema, SCDs in place ANUJ drain in place with minimal output Neuro: nonfocal, patient AA&O x 4, speech intact, no facial droop, moving all extremities on command with equal strength 5/5 Results & Data ([facility]) Vital Signs (Past 12 Hours) Vital Signs Temp Pulse Pulse Pulse Resp BP BP 08/06/21 21:50 37.3 C 91 H 18 105/70 08/06/21 21:00 37.0 C 87 18 100/65 08/06/21 19:50 36.9 C 90 18 102/66 08/06/21 19:20 37.1 C 95 H 18 111/70 08/06/21 18:40 36.8 C 96 H 18 97/61 L 08/06/21 18:28 36.9 C 95 H 18 95/62 L 08/06/21 17:15 98 H 19 105/57 L 08/06/21 17:10 104 H 16 95/67 L 08/06/21 16:40 88 13 97/80 L 08/06/21 16:10 100 H 14 94/50 L 08/06/21 15:55 88 17 106/72 08/06/21 15:40 95 H 22 95/68 L 08/06/21 15:25 92 H 18 106/72 08/06/21 15:10 36.6 C 95 H 12 122/77 08/06/21 15:00 83 17 107/68 08/06/21 14:50 83 19 101/59 L 08/06/21 14:40 88 13 91/58 L 08/06/21 14:30 84 20 104/63 08/06/21 14:20 94 H 17 92/57 L 08/06/21 14:10 89 20 100/64 08/06/21 14:00 85 15 90/67 L 08/06/21 13:50 90 14 99/67 L 08/06/21 13:40 91 H 12 120/71 08/06/21 13:30 102 H 16 75/57 L 08/06/21 13:21 37.3 C 92 H 16 95/78 L Pulse Ox 08/06/21 21:50 93 08/06/21 21:00 94 08/06/21 19:50 95 08/06/21 19:20 93 08/06/21 18:40 93 08/06/21 18:28 95 08/06/21 17:15 95 08/06/21 17:10 95 08/06/21 16:40 94 08/06/21 16:10 94 08/06/21 15:55 97 08/06/21 15:40 94 08/06/21 15:25 88 L 08/06/21 15:10 94 08/06/21 15:00 94 08/06/21 14:50 96 08/06/21 14:40 97 08/06/21 14:30 95 08/06/21 14:20 96 08/06/21 14:10 97 08/06/21 14:00 96 08/06/21 13:50 97 08/06/21 13:40 94 08/06/21 13:30 94 08/06/21 13:21 100 Laboratory Results Laboratory Results SARS-CoV-2, RNA, NAAT NEGATIVE (NEGATIVE) 08/06/21 09:13 Impressions Lumbar Spine X-Ray 08/06/21 10:05 FL lumbar spine 2-3V CLINICAL HISTORY: L2-L3 DECOMPRESSION L2-L5 FUSION L3-L5 HW REMOVAL COMPARISON STUDY: None. FLUOROSCOPY TIME: 16 seconds. FINDINGS: 2 fluoroscopic spot images of the lumbar spine demonstrate posterior decompression fusion from L2 through S1 with pedicle screws and rods. Hardware appears intact. IMPRESSION: Fluoroscopic assistance provided for posterior decompression and fusion from L2 through S1. ACT 112: Negative or not required by law. Electronically signed by: Bruce Riley M.D. 08/06/2021 1:28 PM PG Care Time/CCT Total # of Minutes Spent Total Time Spent with Patient: Total time spent is greater than 50% in coordination of care (as documented) at patient's floor/unit and/or counseling patient: Coding Level of Care Code 17245 Inpt Consult Level 3 Diagnoses Neurogenic claudication due to lumbar spinal stenosis M48.062 Anxiety and depression F41.9; F32.A Cardiomyopathy I42.9 Epileptic seizures G40.909
[2021-08-07] MEDS: LACTATED RINGER'S 1,000 ML IV SCH ×2 (01:41→07:14)
[2021-08-07] MEDS: CLINDAMYCIN 600 MG in DEXTROSE 5% 50 ML IV SCH (04:04)
[2021-08-07] MEDS: POLYETHYLENE (MIRALAX) 17 GM PACK PO SCH ×3 (06:02→16:58)
--- NOTE | 2021-08-07 08:14 | Orthopedic Progress Note ---
Date of Service August 07, 2021 Assessment & Plan (1) Neurogenic claudication due to lumbar spinal stenosis: Plan: At this time initiate physical therapy monitor ANUJ output hopefully discharge home in the next few days. Admission and Anticipated Discharge Date Admission Date: August 06, 2021 Subjective Back pain controlled leg pain improved Physical Exam Physical Exam: Patient is in bed. She is comfortable. She is good strength testing. Results & Data ([facility]) Vital Signs (Past 12 Hours) Vital Signs Temp Pulse Pulse Resp BP BP Pulse Ox 08/07/21 08:11 37.1 C 98 H 16 108/64 96 08/07/21 04:00 37.1 C 76 18 98/65 L 95 08/06/21 21:50 37.3 C 91 H 18 105/70 93 08/06/21 21:00 37.0 C 87 18 100/65 94
[2021-08-07] MEDS: buPROPion SR 150 MG TABCR PO SCH (09:08)
[2021-08-07] MEDS: CALCIUM 600MG + VIT D 400 IU TAB PO SCH (09:08)
[2021-08-07] MEDS: DULoxetine HCL 60 MG CAP PO SCH (09:09)
[2021-08-07] MEDS: ADVANCED PROBIOTIC 1250 MG CAPSULE PO SCH (09:09)
[2021-08-07] MEDS: TOPIRAMATE 50 MG TAB PO SCH ×2 (09:09→20:58)
[2021-08-07] MEDS: dexAMETHasone 6 MG in SYRINGE 0 ML IV SCH (09:10)
[2021-08-07 09:49] LABS: Basophils # (auto) 0.01 K/uL (0-0.2); Basophils % (auto) 0.1 %; Hematocrit (blood only) 31.1 % (37-47); Hemoglobin 10.6 g/dL (12.0-16.0); Immature Granulocytes # (auto) 0.03 K/uL (0.00-0.02); Immature Granulocytes % (auto) 0.2 %; Lymphocytes # (auto) 1.74 K/uL (1.2-3.4); Lymphocytes % (auto) 11.7 %; Mean Corpuscular Hemoglobin 30.7 pg (25-34); Mean Corpuscular Hgb Conc 34.1 g/dL (32-36); Mean Corpuscular Volume 90.1 fL (80-100); Mean Platelet Volume 11.9 fL (7.4-10.4); Monocytes # (auto) 1.04 K/uL (0.11-0.59); Neutrophils # (auto) 12.02 K/uL (1.4-6.5); Platelet Count 163 K/uL (130-400); RDW Standard Deviation 42.3 fL (36.4-46.3); Red Blood Count 3.45 M/uL (4.2-5.4); White Blood Count 14.84 K/uL (4.8-10.8)
[2021-08-07 09:56] LABS: BUN Creatinine Ratio 18.1 (10-20); Calcium 8.3 mg/dl (8.5-10.1); Creatinine Clr Calc Pharmacy 74.6 ml/min; Est GFR (African American) 78.1 ml/min; Est GFR (Non-African American) 67.3 ml/min; Potassium 3.7 mmol/L (3.5-5.1)
[2021-08-07] MEDS: oxyCODONE HCL IR 5 MG TAB (IMMEDIATE RELEASE) PO PRN ×3 (11:35→23:19)
--- NOTE | 2021-08-07 17:05 | Hospitalist Progress Note ---
Date of Service August 07, 2021 Assessment & Plan (1) Neurogenic claudication due to lumbar spinal stenosis: Plan: 56yo female presenting with neurogenic claudication due to lumbar spinal stenosis s/p #1 removal of posterior instrumentation L3-L5. #2 exploration of fusion L3-L5. #3 lumbar decompression with bilateral medial facetectomies and foraminotomies L1-L2 L2-L3. #4 posterior spinal fusion L1-L3. #5 placement posterior instrumentation L1-L5. #[address] Bartlett today under general anesthesia. Surgery somewhat prolonged with EBL of 1200mL. -Pain control, bowel regimen and anti-emetics per primary team -Dexamethasone per primary team -PT/OT and discharge planning per primary team -Recommend DVT prophylaxisat discretion of primary team (2) Cardiomyopathy: Plan: Patient with history of HOCM with asymmetric septal hypertrophy diagnosed by echo. She does not have symptoms. She was following with Cardiology in the past - [address] Suazo. No LVOT obstruction noted on echo. She was recommended a beta brian but is not currently taking this. She was cleared by Cardiology for surgical intervention. Presently with no evidence of failure. HD stable. -Recommend routine outpatient followup, close monitoring for symptoms, serial echos -Avoid hypotension and volume contraction as this can cause LVOT obstruction -no CHF (3) Anxiety and depression: Plan: Well controlled -Continue Bupropion 150mg po qAM -Continue Clonazepam -Continue Duloxetine (4) Epileptic seizures: Plan: Well controlled. Patient states that this is secondary to a meningioma. She has a 1cm parafalcial meningioma noted on prior imaging. -Continue Topiramate 100mg po qHS, 50mg po daily -Continue Gabapentin Plan: patient is medically and HD stable. Will sign off from a medically standpoint but please do not hesitate to reconsult should a problem arise. Thank you for allowing me to participate in the care of this patient. Admission and Anticipated Discharge Date Admission Date: August 06, 2021 Subjective Patient seen on daily rounds today. POD #1 s/p Lumbar decompression and removal of Hardware. Her pain is adequately controlled. Still with a Berman catheter in place. To be removed today following therapy. Otherwise she vocalizes no complaints or concerns. Denies fevers, chills, chest pain, shortness of breath, abdominal pain, nausea or vomiting. Review of Systems Review of Systems: All systems reviewed and are unremarkable except as noted i n HPI and below Denies fevers, chills, headache, nasal congestion, sore throat, cough, chest pain, shortness of breath, palpitations, orthopnea, PND, abdominal pain, nausea, vomiting, diarrhea, constipation, dysuria, hematuria, frequency, joint pain or swelling, easy bruising or bleeding, skin lesions or rashes. Physical Exam Physical Exam: General: Resting comfortably in her hospital bed. NAD. HEENT: Head is AT/NC. Buccal mucosa is moist and pink Neck: No JVD. Negative hepatojugular reflex Cardiac: RRR without M/G/R Lungs: CTA without W/R/R Abdomen: Normoactive X4. Soft and nontender in all quadrants. Extremities: No peripheral clubbing cyanosis or edema. Indwelling ANUJ drain to low back. Dressing dry and intact. Neuro: A&O X4. Cranial nerves II through XII are grossly intact. No focal neuro deficits Skin: No obvious skin lesions or rashes Psych: Appropriate affect. Pleasant and cooperative Results & Data Results & Data ([facility]) Vital Signs (Past 12 Hours) Vital Signs Temp Pulse Resp BP BP Pulse Ox 08/07/21 15:53 36.9 C 96 H 16 106/66 94 08/07/21 11:52 37.2 C 94 H 16 110/71 94 08/07/21 08:11 37.1 C 98 H 16 108/64 96 Laboratory Results 08/07/21 09:07 08/07/21 09:07 PG Care Time/CCT Total # of Minutes Spent Total Time Spent with Patient: Total time spent is greater than 50% in coordination of care (as documented) at patient's floor/unit and/or counseling patient: Coding Level of Care Code 94675 Inpt Consult Level 3 Diagnoses Neurogenic claudication due to lumbar spinal stenosis M48.062 Cardiomyopathy I42.9 Anxiety and depression F41.9; F32.A Epileptic seizures G40.909
[2021-08-07] MEDS: clonazePAM 1 MG TAB PO PRN (20:58)
[2021-08-07] MEDS: DOCUSATE SODIUM/SENNA 50/8.6MG TAB PO SCH (20:58)
[2021-08-07] MEDS: GABAPENTIN 600 MG TAB PO SCH (20:58)
[2021-08-08] MEDS: POLYETHYLENE (MIRALAX) 17 GM PACK PO SCH ×4 (00:18→18:14)
[2021-08-08] MEDS: oxyCODONE HCL IR 5 MG TAB (IMMEDIATE RELEASE) PO PRN ×3 (07:41→19:38)
[2021-08-08] MEDS: CALCIUM 600MG + VIT D 400 IU TAB PO SCH (08:35)
[2021-08-08] MEDS: buPROPion SR 150 MG TABCR PO SCH (08:35)
[2021-08-08] MEDS: DULoxetine HCL 60 MG CAP PO SCH (08:35)
[2021-08-08] MEDS: ADVANCED PROBIOTIC 1250 MG CAPSULE PO SCH (08:35)
[2021-08-08] MEDS: dexAMETHasone 6 MG in SYRINGE 0 ML IV SCH (08:35)
[2021-08-08] MEDS: TOPIRAMATE 50 MG TAB PO SCH ×2 (08:35→20:13)
--- NOTE | 2021-08-08 13:51 | Orthopedic Progress Note ---
Date of Service August 08, 2021 Assessment & Plan (1) Neurogenic claudication due to lumbar spinal stenosis: Plan: This time continue physical therapy monitor her ANUJ output anticipate discharge home tomorrow. Admission and Anticipated Discharge Date Admission Date: August 06, 2021 Subjective Patient's back pain is controlled leg pain improving Physical Exam Physical Exam: On exam she is sitting at the bedside. Is good strength testing. Appears comfortable. Results & Data ([facility]) Vital Signs (Past 12 Hours) Vital Signs Temp Pulse Resp BP Pulse Ox 08/08/21 07:33 36.7 C 85 16 103/64 96
[2021-08-08] MEDS: GABAPENTIN 600 MG TAB PO SCH (20:12)
[2021-08-08] MEDS: DOCUSATE SODIUM/SENNA 50/8.6MG TAB PO SCH (20:13)
[2021-08-08] MEDS: clonazePAM 1 MG TAB PO PRN (20:16)
[2021-08-09] MEDS: POLYETHYLENE (MIRALAX) 17 GM PACK PO SCH ×3 (02:30→12:13)
[2021-08-09] MEDS: oxyCODONE HCL IR 5 MG TAB (IMMEDIATE RELEASE) PO PRN ×2 (03:51→13:01)
[2021-08-09] MEDS: dexAMETHasone 6 MG in SYRINGE 0 ML IV SCH (08:33)
[2021-08-09] MEDS: buPROPion SR 150 MG TABCR PO SCH (08:34)
[2021-08-09] MEDS: CALCIUM 600MG + VIT D 400 IU TAB PO SCH (08:34)
[2021-08-09] MEDS: DULoxetine HCL 60 MG CAP PO SCH (08:34)
[2021-08-09] MEDS: ADVANCED PROBIOTIC 1250 MG CAPSULE PO SCH (08:35)
[2021-08-09] MEDS: TOPIRAMATE 50 MG TAB PO SCH (08:35)
--- NOTE | 2021-08-09 11:17 | Discharge Summary ---
Date of Service August 09, 2021 Admission HPI Per Admitting Provider This is a 56-year-old female who presents with chronic persistent back and bilateral leg pain after failing course of nonoperative care is here for surgical invention. Principal Diagnosis Lumbar spinal stenosis with herniated was pulposis and radiculopathy Discharge Data Allergies Allergy/AdvReac Type Severity Reaction Status Date / Time Penicillins Allergy Mild Rash Verified 08/06/21 08:37 acetaminophen [From [place]] AdvReac Mild SICK TO Verified 08/06/21 08:37 STOMACH hydrocodone [From [place]] AdvReac Mild SICK TO Verified 08/06/21 08:37 STOMACH morphine AdvReac Mild ITCHING Verified 08/06/21 08:37 ALL OVER Consultations 08/06/21 19:31 Consult Hospitalist Routine Procedures Performed Operation Date: 08/06/21 10:05 Actual Procedures p L2-L3 Decompression, L1-L5 Fusion, Spinal Cord Monitoring(Not Applicable) - Sesar Bartlett DO s L3-L5 Hardware Removal(Not Applicable) - Sesar Bartlett DO Ordered Studies 08/06/21 10:05 [place] lumbar spine 2-3V Routine Hospital Course (1) Neurogenic claudication due to lumbar spinal stenosis: Patient underwent lumbar decompression fusion tolerated well was taken to orthopedic for postoperative. Postop day 1 she was up and ambulating briskly postop day 2 on postop day #3 ANUJ drainage decreased probably. Pain well controlled. Separately discharged home. Discharge orders instructions from the chart for further review. Total Time Total Time Spent Total Time Spent (In Minutes): 20 minutes Discharge Plan Discharge Items Patient Disposition: Home - Self-Care Reason For Visit: Spinal Stenosis of Lumbar Region Discharge Diagnosis: Lumbar spinal stenosis with neurogenic claudication Activity: As commented below Non-emergency contact: Primary Care Provider Call non-emergency contact if: you have any medication questions Follow-up/Referrals: Kesha Rodríguez MD [Primary Care Provider] - Diet: Regular Addtl Attending Provider Instructions: ACTIVITY RECOMMENDATIONS: SELF CARE INSTRUCTIONS AFTER THORACIC/LUMBAR FUSIONS 1. You may walk to your tolerance. It is good exercise for your legs and back. Expect some back and intermittent leg aches and pains. 2. You may perform "counter-top" level activities (make a sandwich, miller with a project, etc.). 3. No bending or lifting of more than 10 pounds or back twisting of any nature (roll like a log when turning in bed). 4. You may ride in a car for 20-30 minutes at a time. No driving until after your first visit with your doctor. 5. Frequent changes of position and restricting sitting to 30 minutes at a time will help limit the amount of back spasms and stiffness you may experience. 6. You may discontinue the use of ambulatory aids (cane, crutches, etc.) once your strength and confidence allow. 7. You may interviewing clerk the shower and let water strike your incision when you arrive home at least once daily. Do not take a tub bath, sit in a hot tub or go into a swimming pool until after your first recheck in the office. SPECIAL CARE INSTRUCTIONS: VERY IMPORTANT TO READ AND REVIEW A. Your surgical incision has been closed with a cosmetic suture under the skin that will dissolve in about 6 weeks. In 14 days, you can use a pair of clean scissors and cut the suture that is left outside of the skin at the ends of your incision. 1. The small skin tapes can be removed 7 days after surgery if they have not fallen off by that point. 2. You may keep the wound open to air as much as possible to promote healing after post-op day number 5 unless told otherwise by your doctor. 3. If you think the wound looks like it is becoming infected (redness or worsening drainage) and/or you are experiencing fever, chill or worsening back pain and muscle spasms, contact the office so that we may evaluate you as soon as possible. B. Complications are uncommon, but please contact us if you have any signs or symptoms of: 1. wound infection (fever higher than 102.5 degrees F, redness, separation of wound, drainage, or increasing pain from the incision) 2. blood clots in legs (pain, swelling, redness and warmth in legs) 3. urinary tract infection (fever higher than 102.5 degrees F, burning upon urination or increased frequency of urination) 4. nerve problems (inability to walk on your toes or heels, numbness, loss of bowel or bladder control) 5. any other symptoms that concern you C. Please call the office at if you have any concerns or questions about your operation or recovery. D. No smoking! Smoking drastically decreases the chance of a solid fusion. E. Do not take any anti-inflammatory medications (Indocin, Advil, Motrin, Aspirin, Naprosyn, etc.) as these may inhibit the chance of a solid fusion. Tylenol is okay to take for pain. MANAGING PAIN AFTER SPINAL SURGERY 1. Narcotic medication is intended for short-term use and will be provided for surgical pain. Surgical pain usually lasts for a period of 4-6 weeks. Narcotic medication includes Percocet, Vicodin, Darvocet, Tylenol #3 or Lortab. 2. Longer-term pain is more appropriately treated with non-narcotic medication such as Tylenol ES. 3. Muscle spasm is not appropriately treated with narcotics. Muscle relaxers such as Soma, Flexeril or Skelaxin can be used along with Tylenol ES. 4. Remember that we all live with some "aches and pains". This is not unusual or uncommon after an injury or as we get older. a. Back pain is expected and may include muscle spasms for 4 to 6 weeks after surgery. The pain should gradually improve. If the pain worsens for no apparent reason, please contact the office. b. Intermittent leg pain may also be experienced and should not be concerned about unless it worsens for no apparent reason. If so, please contact the office. 5. We will provide appropriate medication within the normal guidelines of their prescribed use. We will also be very cautious and aware of potential abuse and extended duration of patients' medication needs. a. Pain medications are for your comfort and to assist with sleep and rest so that the tissue can heal. They are not provided in order to return to normal activity and should not be used through the day. To do so or worsening pain at night can result from ongoing tissue damage and dev elopment of tolerance to the prescribed medicine. 6. Please allow 2-3 days to process refills. Prescriptions will not be mailed but must be picked up at the office. FOLLOW UP VISIT: Keep your scheduled follow-up appointment. Any questions, please call the office at . Pending Studies at Discharge: No Stand-Alone Forms: My [employer], Smoking Cessation Medications and DC Order Prescriptions: New tramadol 50 mg tablet 50 mg PO Q6H PRN (Reason: pain, moderate) Qty: 30 RF: 0 oxycodone 5 mg tablet 5 mg PO Q6H PRN (Reason: pain, severe) Qty: 30 RF: 0 Continued bupropion HCl 150 mg Tablet Sustained-Release 12 Hr 150 mg PO QAM RF: 0 gabapentin 600 mg Tablet 600 mg PO HS RF: 0 clonazepam 1 mg Tablet 1 mg PO TID PRN (Reason: Anxiety) RF: 0 methocarbamol 750 mg Tablet 750 - 1,500 mg PO TID PRN (Reason: Pain) RF: 0 topiramate 50 mg Tablet 50 mg PO UD RF: 0 duloxetine 60 mg Capsule,Delayed Release(Dr/Ec) 60 mg PO QAM RF: 0 Calcium 600 + D(3) 600 mg-5 mcg (200 unit) Capsule 1 cap PO QAM RF: 0 Probiotic 100 billion cell Capsule 1 cap PO DAILY RF: 0 Neuriva Plus [employer] 1.7 mg-400 mcg- 2.4 mcg Capsule 1 cap PO QAM RF: 0 Discontinued naproxen 500 mg Tablet 500 mg PO BID PRN (Reason: Pain) RF: 0 Discharge Orders: Discharge Order (Routine); Ordered 08/09/21 Ordered By: Sesar Bartlett Admission Data Admit Date/Time: 08/06/21 13:05 Attending Provider: Sesar Bartlett Admit Provider: Sesar Bartlett Primary Care Provider: Kesha Rodríguez Other Providers: Matthew Wu
== END 2021-08-09 13:47 | disposition home or self-care (01) | DRG 460 ==
LOC: ASU 08:09 → 3N 13:05